=== PATIENT | female | born 1935 | race Caucasian/White ===

== ENCOUNTER → 2016-09-30 | Outpatient (CLI) | payer MEDICARE, OTHER | END | disposition home or self-care (01) | LOC: GMAH 10:29 | PROVIDERS: ATTEND Family Medicine | DX: E78.2 Mixed hyperlipidemia (principal) ==

== ENCOUNTER 2017-03-21 05:41 | Day surgery (SDC) | payer MEDICARE, OTHER ==
[2017-03-21] MEDS ORDERED: TROP 1%/CYCLOPEN 1%/PHENYL 2% DROPS ONE (05:47)
[2017-03-21] MEDS ORDERED: PROPARACAINE 0.5% OPHTH SOL 15 ML BTTL ONE (05:47)
[2017-03-21] MEDS ORDERED: MIDAZOLAM INJ 2 MG/2 ML VIAL ONE (06:56)
[2017-03-21] MEDS ORDERED: PROPARACAINE 0.5% OPHTH SOL 15 ML BTTL RIGHT_EYE ONE (07:54)
[2017-03-21] MEDS ORDERED: LIDOCAINE 1% PF 2 ML AMP INJ ONE (08:02)
[2017-03-21] MEDS: TOBRAMYCIN SULF 0.3 % OPHT SOL 1 DROP RIGHT_EYE ONE (08:03)
[2017-03-21] MEDS ORDERED: DEXAMETHASONE 0.1% OPHTH SOL 1 DROP RIGHT_EYE ONE ×2 (08:03→08:13)
[2017-03-21] MEDS ORDERED: BRIMONIDINE 0.2% OPHTH DROPS RIGHT_EYE ONE ×2 (08:04→08:13)
[2017-03-21] MEDS ORDERED: TOBRAMYCIN SULF 0.3 % OPHT SOL 1 DROP RIGHT_EYE ONE (08:13)
[2017-03-22] MEDS: TOBRAMYCIN SULF 0.3 % OPHT SOL 1 DROP RIGHT_EYE ONE (06:45)
[2017-03-22 07:26] VITALS: BP 129/70; TEMP 98.3; O2SAT 100
== END 2017-03-21 08:55 | disposition home or self-care (01) ==
LOC: AMB 05:41
PROVIDERS: ATTEND Ophthalmology
DX: H25.11 Age-related nuclear cataract, right eye (principal)
CPT/HCPCS: 00142; 66984; J2250

== ENCOUNTER → 2017-03-31 | Outpatient (CLI) | payer MEDICARE, OTHER | LOC: GMAH 14:13 | PROVIDERS: ATTEND Family Medicine | DX: E03.9 Hypothyroidism, unspecified (principal) ==

== ENCOUNTER 2017-04-04 05:36 | Day surgery (SDC) | payer MEDICARE, OTHER ==
[2017-04-04] MEDS ORDERED: TROP 1%/CYCLOPEN 1%/PHENYL 2% DROPS ONE (05:48)
[2017-04-04] MEDS: TOBRAMYCIN SULF 0.3 % OPHT SOL 1 DROP LEFT_EYE ONE ×2 (06:34→07:43)
[2017-04-04] MEDS: PROPARACAINE 0.5% OPHTH SOL 15 ML BTTL ONE ×2 (06:34→07:25)
[2017-04-04] MEDS ORDERED: MIDAZOLAM INJ 2 MG/2 ML VIAL ONE (06:56)
[2017-04-04] MEDS ORDERED: LIDOCAINE 1% PF 2 ML AMP INJ ONE (07:28)
[2017-04-04] MEDS ORDERED: DEXAMETHASONE 0.1% OPHTH SOL 1 DROP LEFT_EYE ONE (07:43)
[2017-04-04] MEDS ORDERED: BRIMONIDINE 0.2% OPHTH DROPS LEFT_EYE ONE (07:43)
[2017-04-05 07:28] VITALS: BP 137/72; TEMP 97; O2SAT 98
== END 2017-04-04 08:25 | disposition home or self-care (01) ==
LOC: AMB 05:36
PROVIDERS: ATTEND Ophthalmology
DX: H25.12 Age-related nuclear cataract, left eye (principal)
CPT/HCPCS: 00142; 66984; J2250

== ENCOUNTER 2017-07-14 02:44 | Emergency (ER) | payer MEDICARE, OTHER ==
--- NOTE | 2017-07-14 02:57 | ED.PDOC ---
History of Present Illness - General Chief Complaint: General Stated Complaint: left knee pain/sick at her stomach Time Seen by Provider: 07/14/17 02:56 Source: patient Exam Limitations: no limitations - History of Present Illness Initial Comments: Nohemy Mcarthur 82 y/o female stated that woke up with left knee pain and sick at her stomach tonight , nauseated ,felt that she was about to passed out.Denies chronic medical problem .Has been treated for elevated cholesterol.She stated that she might have twisted her left knee 2 days ago. Timing/Duration: 1-3 hours Severity: moderate Improving Factors: nothing Associated Symptoms: other - see hpi Allergies/Adverse Reactions: Allergies NO KNOWN ALLERGY Allergy (Verified 07/14/17 03:07) Home Medications: Ambulatory Orders Levothyroxine Sodium [Synthroid] 112 mcg PO DAILY 03/16/17 Pravastatin Sodium [Pravachol] 20 mg PO BEDTIME 03/16/17 Review of Systems - Review of Systems Constitutional: States: no symptoms reported EENTM: States: no symptoms reported Respiratory: States: no symptoms reported Cardiology: States: no symptoms reported Gastrointestinal/Abdominal: States: see HPI Musculoskeletal: States: see HPI, joint pain - left knee All other Systems: Reviewed and Negative, No Change from Baseline Past Medical History (General) - Patient Medical History Hx Congestive Heart Failure: No Hx Diabetes: No Hx MRSA: No Surgical History: other - left knee Family Medical History - Family History Mother Hx Family Cancer: Yes Physical Exam - Physical Exam General Appearance: Alert, Comfortable, No apparent distress Eye Exam: bilateral normal Ears, Nose, Throat: hearing grossly normal, normal ENT inspection Neck: non-tender, full range of motion, supple Respiratory: chest non-tender, lungs clear, normal breath sounds Cardiovascular/Chest: normal peripheral pulses, regular rate, rhythm, no murmur Gastrointestinal/Abdominal: normal bowel sounds, non tender, soft Back Exam: no CVA tenderness, no vertebral tenderness Extremity: no pedal edema, no calf tenderness, other - tibial line tenderness left knee with painful ROM flexion ,negative Gabi/drawer test Neurologic: no motor/sensory deficits, alert, oriented x 3 Skin Exam: normal color, warm/dry Progress - Progress Progress: 07/14/17 03:33 Vital Signs - 8 hr 07/14/17 03:06 Temperature 98.2 F Pulse Rate [ 50 L left] Respiratory 18 Rate Blood Pressure 167/84 [left] O2 Sat by Pulse 97 Oximetry 07/14/17 0447H D/W patient result of blood test ,x-ray left knee and ekg findings and recommended hospital obs but wants to go home and make an appointment with her primary Md Dr. José - Results/Orders Results/Orders: Vital Signs - 8 hr 07/14/17 07/14/17 03:06 04:00 Temperature 98.2 F 97.7 F Pulse Rate [ 50 L 58 L left] Respiratory 18 18 Rate Blood Pressure 167/84 171/77 [left] O2 Sat by Pulse 97 98 Oximetry - EKG/XRAY/CT EKG: Mello, Sinus, ST depression - anterolateral leads Comments: HR-51 XRAY: knee - degenerative changes left knee Departure - Departure Clinical Impression: Nausea, Effusion, left knee Knee pain, left Qualifiers: Chronicity: unspecified Qualified Code(s): M25.562 - Pain in left knee Time of Disposition: 04:55 Disposition: Discharge to Home or Self Care Condition: Fair Departure Forms: ED Discharge - Pt. Copy, Patient Portal Self Enrollment Instructions: DI for Knee Pain Referrals: Joaquín José MD [Primary Care Provider] - 1-2 Weeks Home Medications: Ambulatory Orders Levothyroxine Sodium [Synthroid] 112 mcg PO DAILY 03/16/17 Pravastatin Sodium [Pravachol] 20 mg PO BEDTIME 03/16/17 Additional Instructions: NEED TO FOLLOW UP WITH PRIMARY Md Dr. José GRICELDA ;Return to ER as Needed;Baby Aspirin-81 mg daily(otc)
--- NOTE | 2017-07-14 03:34 | RAD ---
Left knee three view on 07/14/2017 CLINICAL INDICATION: Left knee pain COMPARISON: None FINDINGS: There is osteopenia. There is mild joint space narrowing in the medial and patellofemoral compartments with small osteophyte formation. There is a small suprapatellar joint effusion. There are no fractures. IMPRESSION: 1. Mild changes of osteoarthritis with no acute bony abnormality. 2. Joint effusion, if clinically indicated follow up MRI could better evaluate for internal derangement of the joint. Electronically signed by: Francois Arias 07/14/2017 3:33 AM CDT
[2017-07-14] MEDS ORDERED: ONDANSETRON INJ 4 MG/2 ML VIAL IV ONE (03:43)
[2017-07-14 04:19] VITALS: TEMP 97.7; O2SAT 98
[2017-07-14 05:07] VITALS: BP 137/74
== END 2017-07-14 05:06 | disposition home or self-care (01) ==
LOC: ER 02:44
DX: M25.462 Effusion, left knee (principal); R11.0 Nausea; R00.1 Bradycardia, unspecified; R94.31 Abnormal electrocardiogram [ECG] [EKG]; Z79.899 Other long term (current) drug therapy
CPT/HCPCS: 36415; 73560; 80048; 80076; 82550; 82553; 83690; 84484; 85025; 85610; 85730; 93005; J2405

== ENCOUNTER → 2018-03-30 | Outpatient (CLI) | payer MEDICARE, OTHER | LOC: GMAH 10:31 | PROVIDERS: ATTEND Family Medicine | DX: E03.9 Hypothyroidism, unspecified (principal); I10 Essential (primary) hypertension ==

== ENCOUNTER → 2019-04-02 | Outpatient (CLI) | payer MEDICARE, OTHER | LOC: GMA MATASK 10:44 | PROVIDERS: ATTEND Family Medicine | DX: E03.9 Hypothyroidism, unspecified (principal); I10 Essential (primary) hypertension ==

== ENCOUNTER → 2019-05-17 | Outpatient (CLI) | payer MEDICARE, OTHER | DX: E03.9 Hypothyroidism, unspecified (principal) ==

== ENCOUNTER → 2020-03-13 | Outpatient (CLI) | payer MEDICARE, OTHER | LOC: GMA MATASK 10:41 | PROVIDERS: ATTEND Family Medicine | DX: E03.9 Hypothyroidism, unspecified (principal); I10 Essential (primary) hypertension ==